=== PATIENT | female | born 1975 | race Hispanic/Latino ===

== ENCOUNTER 2025-01-02 19:05 | Emergency (ER) | payer SELFPAY ==
[~2025-01-02] VITALS: Ht 165.1 cm; Wt 73.0 kg
[2025-01-02 19:11] VITALS: PULSE 62; RESP 18; TEMP 98.3
[2025-01-02] MEDS: SODIUM CHLORIDE 0.9% 1000ML 1,000 ML IV ONE (20:20)
[2025-01-02] MEDS: KETOROLAC TROMETHAMINE 30 MG/ML VIAL IV STA (21:05)
[2025-01-02] MEDS ORDERED: FIORICET 50-301 EACH PO (21:09)
[2025-01-02 21:24] VITALS: BP 134/73; PULSE 62; RESP 18; TEMP 98; O2SAT 99
[2025-01-04] MEDS ORDERED: VALACYCLOVIR1000 MG PO (08:40)
== END 2025-01-02 21:24 | disposition home or self-care (01) ==
LOC: FSED 19:10
DX: R51.9 Headache, unspecified (principal)
CPT/HCPCS: 70450; 80053; 80307; 81003; 81025; 85025; 85610; 99284; J7030; J1885